=== PATIENT | female | born 1960 | race Caucasian/White ===

== ENCOUNTER 2016-03-07 17:57 | Outpatient (CLI) | END 2016-03-07 17:58 | disposition home or self-care (01) | LOC: LAB 17:57 | PROVIDERS: ATTEND General Practice | DX: K65.1 Peritoneal abscess (principal) ==

== ENCOUNTER 2016-08-25 10:38 | Outpatient (CLI) ==
[2016-08-25 13:50] LABS: BASOPHILS % (AUTO) 0.8 % (0.0-3.0); EOSINOPHILS # (AUTO) 0.1 K/ul (0.0-0.7); EOSINOPHILS % (AUTO) 1.9 % (0.0-7.0); HEMATOCRIT 40.1 % (37.0-47.0); HEMOGLOBIN 13.4 g/dl (12.0-16.0); LYMPHOCYTES # (AUTO) 1.5 K/uL (0.60-3.4); LYMPHOCYTES % (AUTO) 39.3 (10.0-50.0); MEAN CORPUSCULAR HGB CONC 33.4 (31.8-35.4); MEAN CORPUSCULAR VOLUME 89.7 fl (81.0-99.0); MONOCYTES # (AUTO) 0.4 K/uL (0.4-2.0); MONOCYTES % (AUTO) 10.8 (0-10); NEUTROPHILS # (AUTO) 1.7 K/ul (2.0-6.9); NEUTROPHILS % (AUTO) 47.2; PLATELET COUNT 258 10^3/uL (140-440); RED BLOOD COUNT 4.47 10^6/ul (4.20-5.40); WHITE BLOOD COUNT 3.69 K/ul (4.6-10.2)
[2016-08-25 14:08] LABS: BILIRUBIN,URINE Negative (NEGATIVE); KETONES,URINE Negative (NEGATIVE); LEUKOCYTE ESTERASE ,URINE Trace (NEGATIVE); NITRITE,URINE Negative (NEGATIVE); PH,URINE 6.5 (5-9); PROTEIN,URINE Negative (NEGATIVE); URINE, BLOOD Negative (NEGATIVE)
[2016-08-25 14:12] LABS: ALBUMIN 3.6 g/dL (3.4-5.0); ALBUMIN/GLOBULIN RATIO 0.8; ANION GAP 16.3; BILIRUBIN,TOTAL 0.31 mg/dL (0.00-1.20); BUN/CREATININE RATIO 12.94; CALCIUM 9.4 mg/dL (8.2-10.2); CHOL/HDL RATIO 2.8 (4.5-5.5); CREATININE 0.85 mg/dL (0.60-1.30); POTASSIUM 4.3 mmol/L (3.5-5.10); TOTAL PROTEIN 8.1 g/dL (6.4-8.2)
[2016-08-25 15:10] LABS: ADD URINE MICROSCOPIC YES
== END 2016-08-25 10:39 | disposition home or self-care (01) ==
LOC: LAB 10:38
PROVIDERS: ATTEND General Practice
DX: I10 Essential (primary) hypertension (principal); E78.5 Hyperlipidemia, unspecified; Z79.899 Other long term (current) drug therapy
CPT/HCPCS: 36415; 80053; 80061; 81001; 85025

== ENCOUNTER 2017-03-09 12:54 | Outpatient (CLI) | END 2017-03-09 12:55 | disposition home or self-care (01) | LOC: LAB 12:54 | PROVIDERS: ATTEND General Practice | DX: R63.5 Abnormal weight gain (principal); E78.5 Hyperlipidemia, unspecified; I10 Essential (primary) hypertension; Z79.899 Other long term (current) drug therapy | CPT/HCPCS: 36415; 80053; 80061; 81001; 83525; 85025 ==

== ENCOUNTER 2017-03-11 11:45 | Outpatient (CLI) | END 2017-03-11 11:46 | disposition home or self-care (01) | LOC: LAB 11:45 | PROVIDERS: ATTEND General Practice | DX: R73.9 Hyperglycemia, unspecified (principal) | CPT/HCPCS: 36415; 83036 ==

== ENCOUNTER 2017-11-09 11:29 | Outpatient (CLI) | END 2017-11-09 11:30 | disposition home or self-care (01) | LOC: FCC-LAB 11:29 | PROVIDERS: ATTEND General Practice | DX: E78.5 Hyperlipidemia, unspecified (principal); F41.8 Other specified anxiety disorders; I10 Essential (primary) hypertension; R10.9 Unspecified abdominal pain; Z79.899 Other long term (current) drug therapy | CPT/HCPCS: 36415; 80053; 80061; 80074; 81001; 85025 ==

== ENCOUNTER 2018-04-09 08:10 | Outpatient (CLI) | END 2018-04-09 08:11 | disposition home or self-care (01) | LOC: RHC-LAB 08:10 | PROVIDERS: ATTEND General Practice | DX: E78.5 Hyperlipidemia, unspecified (principal); I10 Essential (primary) hypertension; Z79.899 Other long term (current) drug therapy | CPT/HCPCS: 36415; 80053; 80061; 81001; 85025; 87086 ==